=== PATIENT | female | born 1970 | race Caucasian/White ===

== ENCOUNTER 2016-07-14 11:58 | Emergency (ER) | payer OTHER ==
[~2016-07-14 11:58] MED LIST: GLU850 PO; LANTI SQ; ZESTRIL10 MG PO
[2016-07-14 13:17] LABS: CALCIUM 8.4 mg/dL (8.5-10.1); CARBON DIOXIDE 23.3 mmol/L (21-32); CREATININE SERUM 2.2 mg/dL (0.6-1.0); MAGNESIUM 2.2 mg/dL (1.8-2.4); POTASSIUM SERUM 5.5 mmol/L (3.5-5.1)
[2016-07-14 14:47] VITALS: BP 177/104
== END 2016-07-14 15:02 | disposition left against medical advice (07) ==
LOC: ED 11:58
PROVIDERS: Emergency Medicine
DX: E87.5 Hyperkalemia (principal); I10 Essential (primary) hypertension; E11.42 Type 2 diabetes mellitus with diabetic polyneuropathy; Z79.4 Long term (current) use of insulin; Z79.84 Long term (current) use of oral hypoglycemic drugs; Z88.0 Allergy status to penicillin; Z88.8 Allergy status to other drugs, medicaments and biological substances
CPT/HCPCS: J1815; J1940; J3010; J3490; J7030